=== PATIENT | male | born 1965 | race Caucasian/White ===

== ENCOUNTER 2021-01-23 11:45 | Outpatient (CLI) | payer OTHER, SELFPAY ==
--- NOTE | ~2021-01-23 | XR_ITS ---
EXAMINATION:XR_[id number]_CR DATE: 01/23/2021 12:20 INDICATION: Numbness and tingling of the left upper extremity TECHNIQUE: AP, lateral, lateral swimmers and odontoid views of the cervical spine are provided. COMPARISON: None FINDINGS: Alignment is normal. The odontoid is intact. No fracture is identified. The vertebral body heights are normal. There is mild loss of intervertebral disc space height at C5-6. There is moderate facet and uncovertebral joint osteoarthritis of the lower cervical spine. Prevertebral soft tissues are normal. IMPRESSION: 1. Mild cervical spondylosis without acute findings. Reviewed, dictated and finalized at location A.
--- NOTE | ~2021-01-23 | XR_ITS ---
EXAMINATION: XR humerus LT INDICATION: Bone tumor of the left humerus TECHNIQUE: Two views of the left humerus are obtained. COMPARISON: 01/05/2017 FINDINGS: There is no fracture, dislocation, or subluxation. An 11 x 1.7 cm sclerotic lesion in a pat tern of chondroid matrix is present in the metaphysis and diaphysis of the proximal humerus which is not significantly changed. There is mild osteoarthritis of the glenohumeral and acromioclavicular valentín nts. A supracondylar process is noted in the distal humerus. The soft tissues are unremarkable. IMPRESSION: 1. Stable sclerotic lesion of the proximal humerus most consistent with enchondroma or osteonecrosis. Reviewed, dictated and finalized at location A. IMPRESSION: 1. Stable sclerotic lesion of the proximal humerus most consistent with enchond shila or osteonecrosis.
== END 2021-01-23 11:46 | disposition home or self-care (01) ==
DX: R20.0 Anesthesia of skin (principal); R20.2 Paresthesia of skin; D49.2 Neoplasm of unspecified behavior of bone, soft tissue, and skin; M47.892 Other spondylosis, cervical region
CPT/HCPCS: 72040; 73060

== ENCOUNTER 2021-08-31 15:50 | Outpatient (CLI) | payer OTHER, SELFPAY ==
--- NOTE | ~2021-08-31 | XR_ITS ---
EXAMINATION: XR knee RT 3V DATE: 08/31/2021 16:31 INDICATION: Chronic right knee pain. TECHNIQUE: 3 views of right knee were obtained. COMPARISON: None. FINDINGS: Bone alignment is normal. No fracture. There is mild tricompartmental osteoarthritis charac terized by tiny marginal osteophytes. No joint space narrowing. No knee joint effusion. IMPRESSION: 1. Mild right knee osteoarthritis. Reviewed, dictated and finalized at location A. 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
--- NOTE | ~2021-08-31 | XR_ITS ---
EXAMINATION: XR knee LT 3V DATE: 08/31/2021 16:30 INDICATION: Chronic left knee pain. TECHNIQUE: 3 views of left knee were obtained. COMPARISON: None. FINDINGS: Bone alignment is normal. No fracture. There is mild tricompartmental osteoarthritis charac terized by tiny marginal osteophytes. There are loose bodies measuring up to 7 mm in the posterior in tercondylar notch. No knee joint effusion. IMPRESSION: 1. Mild left knee osteoarthritis. 2. Left knee joint loose bodies. Reviewed, dictated and finalized at location A. 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
== END 2021-08-31 15:51 | disposition home or self-care (01) ==
DX: M25.561 Pain in right knee (principal); M25.562 Pain in left knee; M17.0 Bilateral primary osteoarthritis of knee; M23.42 Loose body in knee, left knee
CPT/HCPCS: 73562